=== PATIENT | male | born 1975 | race African-American/Black ===

== ENCOUNTER 2020-05-23 13:11 | Emergency (ER) | payer OTHER ==
[~2020-05-23] VITALS: Ht 165.1 cm; Wt 68.0 kg
[2020-05-23] MEDS ORDERED: KETOROLAC 30MG/ML VIAL IM ONE (13:30)
[2020-05-23] MEDS ORDERED: HYDROCODONE/ACETAMINOPHEN 5/325MG TABLET PO ONE (13:30)
[2020-05-23] MEDS ORDERED: IBUPROFEN 600MG TABLET PO ONE (15:15)
[2020-05-23 15:19] VITALS: BP 131/92
== END 2020-05-23 15:25 | disposition home or self-care (01) ==
LOC: ER 13:11
DX: S80.812A Abrasion, left lower leg, initial encounter (principal); L03.116 Cellulitis of left lower limb; J45.909 Unspecified asthma, uncomplicated; F17.200 Nicotine dependence, unspecified, uncomplicated; V49.9XXA Car occupant (driver) (passenger) injured in unspecified traffic accident, initial encounter; Y93.89 Activity, other specified; Y92.89 Other specified places as the place of occurrence of the external cause
CPT/HCPCS: 73562; 73590; 93005; 93971; 99284